=== PATIENT | male | born 1980 | race Caucasian/White ===

== ENCOUNTER 2022-01-06 17:24 | Emergency (ER) | payer OTHER ==
[2022-01-06] MEDS ORDERED: MEDROL 4MG DOSEP4 MG PO (22:06)
== END 2022-01-06 22:23 | disposition home or self-care (01) ==
LOC: FER 17:24
DX: M50.321 Other cervical disc degeneration at C4-C5 level (principal); Z88.1 Allergy status to other antibiotic agents
CPT/HCPCS: 71045; 72125; J1100